=== PATIENT | male | born 1950 | race African-American/Black ===

== ENCOUNTER 2017-05-21 19:15 | Observation (INO) ==
[2017-05-21] MEDS ORDERED: prednisoLONE ACETATE 1% OPH SUSP 5 ML BOTTLE ONE (19:33)
[2017-05-21] MEDS ORDERED: MOXIFLOXACIN 0.5% OPH SOLN 3 ML BOTTLE ONE (19:33)
[2017-05-21] MEDS ORDERED: ATROPINE 1 % OPH SOLN 5 ML BOTTLE ONE (19:33)
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
[2017-05-21] MEDS ORDERED: DIPH/TET/ACEL PERT BOOSTER VACCINE 0.5 ML VIAL IM ONE ×2 (19:55→19:57)
[2017-05-21 20:05] LABS: Basophils % 0.3 % (0.0-0.8); Eosinophils % 0.4 % (0.00-10.9); Hematocrit 46.8 VOL% (42.0-52.0); Hemoglobin 15.5 GM/DL (14.0-18.0); Immature Granulocytes % 0.3 %; Immature Granulocytes Absolute 0.03 #; Lymphocytes % 10.9 % (21.2-54.2); Mean Corpuscular HGB Conc 33.1 GM/DL (32-36); Mean Corpuscular Hemoglobin 28 PG (27-34); Mean Corpuscular Volume 83.9 FL (87-102); Monocytes # 0.7 10*3/uL (0.11-0.8); Monocytes % 7.1 % (1.7-12.7); Neutrophils # 7.7 10*3/uL (1.4-7.4); Platelet Count 175 T/CUMM (130-400); Red Blood Count 5.58 MC/CUMM (3.8-5.5); Red Cell Distribution Width 12.2 % (9.3-17.3); White Blood Count 9.6 T/CUMM (4-12)
[2017-05-21 20:16] LABS: Albumin 4.1 G/DL (3.4-5.0); Bilirubin,Total 0.6 MG/DL (0.2-1.0); Calcium 9.8 MG/DL (8.5-10.1); Potassium 4.2 MMOL/L (3.5-5.1); Total Protein 8.5 G/DL (6.4-8.3)
[2017-05-21] MEDS ORDERED: ceFAZolin 1,000 MG VIAL ONE (20:25)
[2017-05-21] MEDS ORDERED: BACITRACIN OPH OINT 3.5 GM TUBE ONE (21:14)
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
[2017-05-21] MEDS ORDERED: fentaNYL 100 MCG/2 ML VIAL ONE (23:27)
[2017-05-21] MEDS ORDERED: SEVOFLURANE 1 UNIT/15 MINUTE INH ONE (23:27)
[2017-05-21] MEDS ORDERED: MIDAZOLAM 2 MG/2 ML VIAL ONE (23:27)
[2017-05-21] MEDS ORDERED: ePHEDrine 50 MG/ML AMP ONE (23:28)
[2017-05-21] MEDS ORDERED: LACTATED RINGERS 3,000 ML IV ONE (23:28)
[2017-05-21] MEDS ORDERED: METOCLOPRAMIDE 10 MG/2 ML VIAL ONE (23:28)
[2017-05-21] MEDS ORDERED: FAMOTIDINE 20 MG/2 ML VIAL IV ONE (23:28)
--- NOTE | 2017-05-21 23:38 | Anesthesia Post-Op ---
Anesthesia Post OP - Post Ansesthetic Evaluation Patient seen in post op: Yes Resp: within normal limits CV: within normal limits Mental: within normal limits Temp: within normal limits [id number]: within normal limits Nausea and Vomiting: within normal limits Pain: within normal limits
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
[2017-05-21] MEDS ORDERED: KETOROLAC 30 MG/1 ML VIAL IV PRN (23:52)
[2017-05-21] MEDS ORDERED: PROMETHAZINE 25 MG/1 ML VIAL IM PRN (23:55)
[2017-05-21] MEDS: SODIUM CHLORIDE 0.9% 1,000 ML IV SCH (23:55)
[2017-05-22] MEDS ORDERED: PNEUMOCOCCAL VACCINE (13 VALENT) 0.5 ML SYRINGE IM ONE (00:19)
--- NOTE | 2017-05-22 03:40 | EKG Report ---
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
[2017-05-22] MEDS ORDERED: AMOXICILLIN/CLAV 500 MG TABLET PO SCH (11:30)
[2017-05-22] MEDS ORDERED: BRIMONIDINE/TIMOLOL OPH SOLN 5 ML BOTTLE RIGHT EYE SCH (11:30)
[2017-05-22] MEDS: ATROPINE 1 % OPH SOLN 5 ML BOTTLE RIGHT EYE SCH ×2 (12:29→17:12)
[2017-05-22] MEDS: MOXIFLOXACIN 0.5% OPH SOLN 3 ML BOTTLE RIGHT EYE SCH ×2 (12:33→17:12)
[2017-05-22] MEDS: DIFLUPREDNATE 0.05% OPH EMUL 5 ML BOTTLE RIGHT EYE SCH ×5 (12:33→17:11)
[2017-05-22] MEDS: SODIUM CHLORIDE 0.9% 1,000 ML IV SCH (12:37)
[2017-05-22] MEDS ORDERED: ALFUZOSIN 10 MG TABLET PO SCH (15:30)
[2017-05-22 16:10] VITALS: BP 159/70
--- NOTE | 2017-05-22 17:10 | Discharge Summary ---
Hospital Course - Hospital Course Hospital Course: Today is postoperative day 1. He is afebrile with stable vital signs. He is transported to my office for slit lamp exam. He states his right eye does not hurt. His visual acuity is bare light perception in the right eye. The intraocular pressure by Jose Manuel-Pen is 24. All lid and external sutures are intact. His motility is minimally restricted secondary to periorbital swelling. The cornea shows healing superficial corneal epithelial defects. The conjunctival sutures are intact. There is a 50% hyphema. There is also 3+ suspended red blood cell and the irregular pupil continues. There is no view currently of the posterior segment. It is felt at this point that he is reached maximum hospital benefit and is ready for discharge. #1 discharge home 2. Follow-up in Dr. Craig's office tomorrow afternoon 3 bed rest with bathroom privileges 4. Use eyedrops as instructed: Vigamox 4 times daily... Atropine 1% twice daily... Durezol q. one hour... Combigan twice daily... Lumigan twice daily... Bacitracin ophthalmic ointment to the sutures 3 times daily 5 Clayton shield eye at all times. 6 sleep with head of bed elevated to 30 7 Augmentin 500 mg p.o. twice daily Diagnosis - Discharge Diagnosis (1) Eye injuries Status: Acute Discharge Plan - Discharge Medications No Action Hydrocortisone Enema [Cortenema] 100 mg RECTAL BEDTIME hydroCHLOROthiazide [Hydrochlorothiazide] 12.5 mg PO DAILY Tramadol HCl [Tramadol Tab] 2 tablet PO BID Lisinopril 1 tablet PO DAILY amLODIPine [Norvasc] 10 mg PO QAM Alfuzosin HCl [Alfuzosin HCl ER] 10 mg PO DAILY W/SUPPER Simvastatin 10 mg PO DAILY W/SUPPER - Follow Up or Referral - Forms/Instructions Exam - Constitutional Vitals: Period Temp Pulse Resp BP Sys/Hill Pulse Ox Last 24 Hr 97.0 F-98.9 F 59-93 18-20 130-165/70-102 94-100 Discharge Results Labs on day of discharge: Labs from last 24 hours 05/21/17 05/21/17 19:47 19:39 WBC 9.6 RBC 5.58 H Hgb 15.5 Hct 46.8 MCV 83.9 L MCH 28 MCHC 33.1 RDW 12.2 Plt Count 175 MPV 12.0 Neut % (Auto) 81.0 H Lymph % (Auto) 10.9 L Sanders % (Auto) 7.1 Eos % (Auto) 0.4 Baso % (Auto) 0.3 Neut # (Auto) 7.7 H Lymph # (Auto) 1.0 L Sanders # (Auto) 0.7 Eos # (Auto) 0.0 Baso # (Auto) 0.0 Immature Gran % 0.3 Nucleated RBC % 0.0 Immature Gran # 0.03 Nucleated RBCs # 0.00 Immature Plt Fraction 0.0 Sodium 136 Potassium 4.2 Chloride 101 Carbon Dioxide 31 Anion Gap 8.2 BUN 18 Creatinine 1.00 GFR Calculation 106 BUN/Creatinine Ratio 18.00 Glucose 119 H Calculated Osmolality 274.0 Calcium 9.8 Total Bilirubin 0.60 AST 34 ALT 28 Alkaline Phosphatase 104 Total Protein 8.5 H Albumin 4.1 Globulin 4.4 H Albumin/Globulin Ratio 0.9 L DS: Provider Date of admission: 05/21/17 23:17 Primary care physician: . No PCP Attending physician on admission: Kd Craig MD Discharging clinician: Kd Craig MD
[2017-05-22] MEDS ORDERED: traMADol 50 MG TABLET PO ONE (17:48)
[2017-05-22] MEDS ORDERED: BIMATOPROST 0.01% OPH SOLN 2.5 ML BOTTLE RIGHT EYE SCH (21:00)
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
== END 2017-05-22 19:00 | disposition home or self-care (01) ==
LOC: N.EDINP 19:15 → N.ED 19:15 → N.3E 20:05
PROVIDERS: ADMIT Ophthalmology; ATTEND Ophthalmology